=== PATIENT | female | born 1990 | race Two or more races ===

== ENCOUNTER 2018-04-04 12:21 | Emergency (ER) | payer OTHER ==
[~2018-04-04] VITALS: Ht 165.1 cm; Wt 59.0 kg
[2018-04-04 12:38] VITALS: BP 123/81
[2018-04-04 13:48] LABS: Hepatitis B Surface Antibody Positive
[2018-04-08 14:24] LABS: Hepatitis B Surface Antigen Negative (Negative)
== END 2018-04-04 13:56 | disposition home or self-care (01) ==
LOC: ER 12:21
DX: Z77.21 Contact with and (suspected) exposure to potentially hazardous body fluids (principal)
CPT/HCPCS: 36415; 86703; 86706; 86803; 87340